=== PATIENT | male | born 1995 | race Caucasian/White ===

== ENCOUNTER 2016-08-20 23:14 | Emergency (ER) | payer SELFPAY ==
[~2016-08-20] VITALS: Ht 180.3 cm; Wt 90.7 kg
[2016-08-20 23:44] VITALS: BP 122/82; PULSE 84; RESP 18; TEMP 98.7; O2SAT 100
== END 2016-08-21 00:39 | disposition left against medical advice (07) ==
LOC: PHED 23:14
DX: R10.31 Right lower quadrant pain (principal)
CPT/HCPCS: 99281

== ENCOUNTER 2016-12-21 17:14 | Emergency (ER) | payer OTHER ==
[~2016-12-21] VITALS: Ht 172.7 cm; Wt 93.0 kg
[2016-12-21 17:31] VITALS: BP 156/69; PULSE 82; RESP 14; TEMP 98.5; O2SAT 98
[2016-12-21 17:37] VITALS: BP 156/69; PULSE 82; RESP 14; TEMP 98.5; O2SAT 98
[2016-12-21] MEDS ORDERED: ROBA750T PO (18:39)
[2016-12-21] MEDS ORDERED: IBUP-232 PO (18:39)
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
== END 2016-12-21 19:00 | disposition home or self-care (01) ==
LOC: PHEFT 17:14
DX: S16.1XXA Strain of muscle, fascia and tendon at neck level, initial encounter (principal); S39.012A Strain of muscle, fascia and tendon of lower back, initial encounter; S39.011A Strain of muscle, fascia and tendon of abdomen, initial encounter; V89.2XXA Person injured in unspecified motor-vehicle accident, traffic, initial encounter
CPT/HCPCS: 99283